=== PATIENT | male | born 1960 | race Caucasian/White ===

== ENCOUNTER → 2017-02-10 | Outpatient (CLI) | payer SELFPAY ==
--- NOTE | 2017-02-10 14:27 | REP ---
RIGHT SHOULDER, COMPLETE: 02/10/2017. Clinical history: Shoulder contusion. Findings: No prior study. The three views show the AC joint with small spurring from the clavicle without widening of the joint or elevation of the clavicle. No fracture of clavicle, scapula, ribs or humeral head. Glenohumeral joint without significant degenerative changes. Good range of motion with internal and external rotation. No subluxation, dislocation or abnormal soft tissue calcification on the scapular Y view. Impression: 1. 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 No fracture. Signed by Gennaro Crain MD 02/10/2017 08:28 P
== END ==
LOC: M WUC 12:01
PROVIDERS: ATTEND Physician Assistant
DX: S40.011A Contusion of right shoulder, initial encounter (principal); M19.011 Primary osteoarthritis, right shoulder; X58.XXXA Exposure to other specified factors, initial encounter; Y93.9 Activity, unspecified; Y92.9 Unspecified place or not applicable; Y99.8 Other external cause status